=== PATIENT | male | born 1955 | race Caucasian/White ===

== ENCOUNTER 2019-01-01 13:42 | Day surgery (SDC) | payer OTHER, SELFPAY ==
[2018-12-26 15:15] VITALS: BMI 44.9
[2019-01-01] VITALS (7 sets, daily range): BP systolic 151–177; BP diastolic 82–91; PULSE 76–99; RESP 14–19; TEMP 36.4–37.2; O2SAT 96–98; BMI 44.9
[2019-01-01] MEDS: LACTATED RINGERS 1,000 ML 42 ML IV (14:38)
--- NOTE | 2019-01-01 15:46 | PM.PREOP ---
Pre-operative Note Interval Note History & Physical reviewed/Exam performed by Physician: Yes Changes to H&P: No
--- NOTE | 2019-01-01 16:36 | SUR.OPER ---
Supine on padded OR bed, head on pillow, arms secured on padded arm boards at <90 degrees abduction, legs uncrossed, safety belt at thigh, tape over blanket over lower legs.Lateral post at right thigh
[2019-01-01] MEDS: BUPIVACAINE 0.5% W/ EPI (PF) VIAL 30 ML INJ (16:53)
--- NOTE | 2019-01-01 17:03 | SUR.PHASEI ---
Report received. Pt denied pain. Rt knee drsg cdi
--- NOTE | 2019-01-01 17:12 | PM.OP.1 ---
Operative Date/Time/Diagnoses Date of procedure: 01/01/19 Time of procedure: 17:14 Pre-op diagnosis: Right knee medial and lateral meniscus tears Post-op diagnosis: other (Hypertrophic synovial plica) Procedure & Clinicians Procedure: Right knee arthroscopy with 1. Partial medial and lateral meniscectomies (CPT code 29418) and 2. Partial synovectomy/excision of plica (CPT code 64357) Same procedure as scheduled: Yes Indications: 63-year-old male with progressive knee pain and catching type symptoms. history exam suggestive of internal derangement and MRI scan confirms. Patient has failed conservative treatment thus far. Informed consent obtained to proceed with arthroscopic evaluation and treatment. Surgeon: Walter Davidson Click Yes if Unassisted: Yes Anesthesia Type: General Operative Notes Findings: Grade 1-2 chondromalacic changes of the patellar and trochlear surfaces. Mild hypertrophic synovitis in the suprapatellar pouch was significantly thickened and shredded medial patellofemoral plica. Notch demonstrates severe hypertrophic synovial thickening with intact anterior and posterior cruciate ligaments. Lateral compartment demonstrates diffuse softening the femoral and tibial articular surfaces with a small flap tear of the midbody of the lateral meniscus. Medial compartment demonstrates diffuse grade 2-3 chondromalacia changes with a small flap tear of the posterior horn medial meniscus otherwise intact posterior and have horn and mid body with a large flap tear of the anterior horn of the medial meniscus. Closure Type: primary Specimen(s): none sent Estimated Blood Loss (mL): 10 Blood products transfused: none Tourniquet time (min): 0 Procedure in detail: After administration of general anesthetic the patient placed supine on the operating table in the right lower extremities prepped and draped in the usual sterile fashion. Medial and lateral parapatellar portals created after infiltrating with Marcaine. arthroscope introduced through the lateral parapatellar portal, an arthroscopic examination was performed with the above-noted findings. Partial medial and lateral meniscectomies performed using combination basket forceps and shaver back to smooth stable rims. Hypertrophic synovial tissue and plica were then excised back to normal appearing synovial tissue with shaver. The knee was irrigated and drained and wounds were closed with Steri-Strips. The knee was then infiltrated with Marcaine, sterile dressings applied, the anesthetic terminated, and the patient taken to postanesthetic recovery in satisfactory condition. Complications: none Condition: stable Disposition: PACU Plan for aftercare: Routine postoperative care with weight-bearing as tolerated, dressing change after 48 hours as needed. Follow up in 10-14 days in orthopedic office.
--- NOTE | 2019-01-01 17:19 | P.OP_ITS ---
Operative Date/Time/Diagnoses Date of procedure: 01/01/19 Time of procedure: 17:14 Pre-op diagnosis: Right knee medial and lateral meniscus tears Post-op diagnosis: other (Hypertrophic synovial plica) Procedure & Clinicians Procedure: Right knee arthroscopy with 1. Partial medial and lateral meniscectomies (CPT code 10632) and 2. Partial synovectomy/excision of plica (CPT code 25518) Same procedure as scheduled: Yes Indications: 63-year-old male with progressive knee pain and catching type symptoms. history exam suggestive of internal derangement and MRI scan confirms. Patient has failed conservative treatment thus far. Informed consent obtained to proceed with arthroscopic evaluation and treatment. Surgeon: Walter Davidson Click Yes if Unassisted: Yes Anesthesia Type: General Operative Notes Findings: Grade 1-2 chondromalacic changes of the patellar and trochlear surfaces. Mild hypertrophic synovitis in the suprapatellar pouch was significantly thickened and shredded medial patellofemoral plica. Notch demonstrates severe hypertrophic synovial thickening with intact anterior and posterior cruciate ligaments. Lateral compartment demonstrates diffuse softening the femoral and tibial articular surfaces with a small flap tear of the midbody of the lateral meniscus. Medial compartment demonstrates diffuse grade 2-3 chondromalacia changes with a small flap tear of the posterior horn medial meniscus otherwise intact posterior and have horn and mid body with a large flap tear of the anterior horn of the medial meniscus. Closure Type: primary Specimen(s): none sent Estimated Blood Loss (mL): 10 Blood products transfused: none Tourniquet time (min): 0 Procedure in detail: After administration of general anesthetic the patient placed supine on the operating table in the right lower extremities prepped and draped in the usual sterile fashion. Medial and lateral parapatellar portals created after infiltrating with Marcaine. arthroscope introduced through the lateral parapatellar portal, an arthroscopic examination was performed with the above-noted findings. Partial medial and lateral meniscectomies performed using combination basket forceps and shaver back to smooth stable rims. Hypertrophic synovial tissue and plica were then excised back to normal appearing synovial tissue with shaver. The knee was irrigated and drained and wounds were closed with Steri-Strips. The knee was then infiltrated with Marcaine, sterile dressings applied, the anesthetic terminated, and the patient taken to postanesthetic recovery in satisfactory condition. Complications: none Condition: stable Disposition: PACU Plan for aftercare: Routine postoperative care with weight-bearing as tolerated, dressing change after 48 hours as needed. Follow up in 10-14 days in orthopedic office.
--- NOTE | 2019-01-01 17:43 | SUR.PHASEII ---
present, instructions reviewed with both - no questions/concerns. Stable on feet, Dressing CDI; Stable.
== END 2019-01-01 17:50 | disposition home or self-care (01) ==
PROVIDERS: PCP Family Medicine; Visit Provider Orthopaedic Surgery
PROC: (CPT 29870; principal; 2019-01-01 15:30)
DX: S83.241A Other tear of medial meniscus, current injury, right knee, initial encounter (principal); M25.861 Other specified joint disorders, right knee; M22.41 Chondromalacia patellae, right knee; M67.51 Plica syndrome, right knee
CPT/HCPCS: 29880; J2250; J2704; J3010

== ENCOUNTER → 2019-02-07 10:44 | Outpatient (CLI) | payer OTHER, SELFPAY ==
--- NOTE | 2019-02-07 | DI.RAD.S_ITS ---
PROCEDURE: XR LUMBAR SPINE 2-3V INDICATIONS: LOW BACK PAIN TECHNIQUE: 3 views of the lumbar spine were acquired. COMPARISON: None. FINDINGS: Bones: 5 [id number] vertebrae are present. There is minimal anterolisthesis at L2-L3 and L3-L4. Multilevel disc space narrowing is demonstrated throughout the lumbar spine including moderate narrowing at L2-L3 and mild/moderate narrowing at L3-L4. There is mild multilevel endplate sclerosis and osteophytosis. Mild facet arthropathy also demonstrated in the lower lumbar spine. No vertebral body compression fractures. No suspicious bony lesions. Soft tissues: Overlying bowel gas pattern is normal. No suspicious soft tissue calcifications. IMPRESSION: 1. Multilevel degenerative changes throughout the lumbar spine as described. 2. Minimal retrolisthesis at L2-L3 and L3-L4. Dictated by: Juanpablo Perez M.D. on 02/07/2019 at 12:39 Approved by: Juanpablo Perez M.D. on 02/07/2019 at 12:46
== END ==
PROVIDERS: PCP Family Medicine; Visit Provider Family Medicine
DX: M54.5 Low back pain (principal); M47.816 Spondylosis without myelopathy or radiculopathy, lumbar region
CPT/HCPCS: 72100

== ENCOUNTER → 2021-12-18 12:43 | Outpatient (CLI) | payer MEDICARE, SELFPAY ==
[2021-12-18 14:00] LABS: COVID-19 CEPHEID PCR (VTM/NP) Negative (Negative)
== END ==
PROVIDERS: PCP Family Medicine; Referring Provider Internal Medicine; Visit Provider Internal Medicine
DX: Z20.822 Contact with and (suspected) exposure to COVID-19 (principal)
CPT/HCPCS: C9803; U0003; U0005

== ENCOUNTER → 2021-12-18 12:48 | Outpatient (CLI) | payer MEDICARE, SELFPAY ==
--- NOTE | 2021-12-23 09:47 | PM.PFT.1 ---
Pulmonary Function Test Referral & Results Date Patient Seen: 12/18/21 Requesting provider: Scar Ochoa Results: The spirometry demonstrates an FVC of 4.30 L which is 82% of predicted. The FEV1 was measured at 3.18 L which is 81% of predicted. The FEV1/FVC ratio was 74 which is 99% of predicted. Following the administration of bronchodilator there was a 7% improvement in FEV1 and a 30% improvement in FEF 25-75% Interpretation: This study demonstrates possibly very mild obstructive lung disease based on reduction FEV1 at as well as minimal improvement post bronchodilator as above and shape a flow volume loop also does support the presence of some degree of obstructive lung disease
== END ==
PROVIDERS: PCP Family Medicine; Referring Provider Student in an Organized Health Care Education/Training Program; Visit Provider Student in an Organized Health Care Education/Training Program
DX: J44.9 Chronic obstructive pulmonary disease, unspecified (principal); Z20.822 Contact with and (suspected) exposure to COVID-19
CPT/HCPCS: 94060; C9803; U0003; U0005

== ENCOUNTER 2022-07-06 01:56 | Emergency (ER) | payer MEDICARE, SELFPAY ==
[2022-07-06 01:57] VITALS: BP 134/70; PULSE 62; RESP 18; TEMP 36.6; O2SAT 98; BMI 35.6
--- NOTE | 2022-07-06 02:05 | PC.NURSE ---
pt speaking in complete sentences, resp even and unlabored no resp distress noted
--- NOTE | 2022-07-06 02:11 | DI.RAD.S_ITS ---
PROCEDURE: XR CHEST 1V INDICATIONS: sob TECHNIQUE: One view of the chest was acquired. COMPARISON: None. FINDINGS: Surgical changes and devices: None. Lungs and pleura: Subtle infiltrates in mid lungs bilaterally. No pleural effusions or pneumothorax. Mediastinum: Mediastinal contours appear normal. Heart size is normal. Bones and chest wall: No suspicious bony lesions. Overlying soft tissues appear unremarkable. IMPRESSION: Subtle infiltrates in mid lung zones bilaterally suspicious for developing pneumonia. No significant discrepancy with the nightclub manager radiology preliminary report. Dictated by: Antwan Prasad M.D. on 07/06/2022 at 8:18 Approved by: Antwan Prasad M.D. on 07/06/2022 at 8:19
[2022-07-06 03:00] VITALS: BP 142/67; PULSE 58; RESP 18; O2SAT 94
[2022-07-06 03:30] VITALS: BP 159/75; PULSE 59; RESP 18; O2SAT 97
[2022-07-06] MEDS: AMOXICILLIN/CLAV 875/125 MG 1 TAB PO (03:42)
[2022-07-06] MEDS: ALBUTEROL/IPRATROPIUM 3 ML AMPUL INH (03:55)
[2022-07-06 04:00] VITALS: BP 123/60; PULSE 55; RESP 18; O2SAT 99
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
[2022-07-06 04:33] VITALS: BP 144/68; PULSE 56; RESP 18; O2SAT 97
== END 2022-07-06 04:35 | disposition home or self-care (01) ==
PROVIDERS: Emergency Provider Emergency Medicine; PCP Family Medicine
DX: J18.9 Pneumonia, unspecified organism (principal)
CPT/HCPCS: 71045; 99283

== ENCOUNTER 2022-07-18 20:38 | Emergency (ER) | payer MEDICARE, SELFPAY ==
[2022-07-18] VITALS (7 sets, daily range): BP systolic 145; BP diastolic 75; PULSE 62–82; RESP 17–28; TEMP 36.4; O2SAT 95–98
--- NOTE | 2022-07-18 20:54 | DI.RAD.S_ITS ---
PROCEDURE: XR CHEST 2V INDICATIONS: soa, fatigue, recently treated for pne TECHNIQUE: 2 views of the chest were acquired. COMPARISON: [facility], CR, XR CHEST 1V, 07/06/2022, 2:33. FINDINGS: Surgical changes and devices: None. Lungs and pleura: Lungs are clear. No pleural effusions or pneumothorax. Mediastinum: Mediastinal contours are normal. Heart size is normal. Bones and chest wall: No suspicious bony abnormalities. Soft tissues appear unremarkable. IMPRESSION: 1. No acute cardiopulmonary disease. Dictated by: Juanpablo Perez M.D. on 07/18/2022 at 21:22 Approved by: Juanpablo Perez M.D. on 07/18/2022 at 21:22
[2022-07-18 22:19] LABS: Add Manual Diff / Slide Review NO; Basophils Absolute Auto 0 /uL (0-100); Basophils Percent Auto 0.4 % (0-2); Eosinophils Absolute Auto 400 /uL (0-450); Eosinophils Percent Auto 3.7 % (2-4); Hematocrit 50.5 % (41-53); Hemoglobin 17.2 g/dL (13.5-17.5); Lymphocytes Absolute Auto 1700 /uL (1100-4500); Lymphocytes Percent Auto 14.9 % (25-40); Mean Corpuscular Hemoglobin 30.7 PG (26-34); Mean Corpuscular Volume 90.2 fL (80-100); Monocytes Absolute Auto 900 /uL (0-900); Monocytes Percent Auto 7.3 % (3-14); Neutrophils Absolute Auto 8500 /uL (1500-7000); Neutrophils Percent Auto 73.7 % (50-75); Platelet Count 208 X10^3/uL (150-400); Red Cell Distribution Width 14.4 % (11.6-14.8); White Blood Cell Count 11.6 X10^3/uL (4.5-11.0)
--- NOTE | 2022-07-18 22:28 | ED.RECABL ---
HPI - Recheck/Abnormal Lab/Rx General Chief Complaint: Recheck/Abnormal Lab/Rx Stated Complaint: Pneumonia Time Seen by Provider: 07/18/22 22:05 Source: patient Mode of arrival: Ambulatory Limitations: no limitations History of Present Illness HPI narrative: This is a 66-year-old male with history of hypertension, dyslipidemia, hypothyroidism and possible reactive airway disease. Patient states for the past month he will have coughing fits and feel tight and wheezy in his chest. Initially he states that he thought it was the smoke that does normally bother him every year, he was diagnosed with pneumonia on July 06 improved and then symptoms returned again. Each time patient has received oral steroids which he has found very helpful and when he stops the steroids the following day his symptoms return. He states no fevers or chills. He has some sinus congestion does not appreciate a lot of postnasal drip. He states lab coughing fits usually a couple minutes at the most he will get sweaty when he coughs a lot. He denies chest but does feel tight in his chest during these episodes. Denies any nausea or vomiting. Denies any diarrhea constipation, no urinary symptoms. No swelling in extremities. Patient does have an albuterol inhaler he is used it frequently with some help. Patient did have a PFT test and was told that he did not fully meet asthma criteria but met some of the criteria in the past month. Patient denies any active tobacco use some remote he did smoke a lot of marijuana he was younger and occasionally vapes or smokes now. Alcohol occasionally. He states he is had orthopedic surgery in his arm but denies any cardiac stents or other surgeries. States he is allergic to codeine. Related Data Home Medications Medication Instructions Recorded Confirmed aspirin 81 mg tablet,delayed 81 mg PO DAILY 12/27/18 01/01/19 release ibuprofen 800 mg tablet 800 mg PO TID 12/27/18 01/01/19 levothyroxine 175 mcg capsule 175 mcg PO DAILY 12/27/18 01/01/19 losartan 100 mg tablet 100 mg PO DAILY 12/27/18 01/01/19 simvastatin 40 mg tablet 40 mg PO QPM 12/27/18 01/01/19 tramadol 50 mg tablet 50 mg PO Q6H PRN pain 12/27/18 12/27/18 Previous Rx's Medication Instructions Recorded hydrocodone 5 mg-acetaminophen 300 1 tab PO Q4-6H PRN pain #30 tabs 01/01/19 mg tablet (Vicodin) amoxicillin 875 mg-potassium 1 tab PO Q12H #20 tabs 07/06/22 clavulanate 125 mg tablet prednisone 10 mg tablet See Rx Instructions .Route 07/06/22 .COMPLEX #30 tabs beclomethasone dipropionate 80 1 inh inhalation BID #10.6 grams 07/18/22 mcg/actuation HFA breath activated aerosol (Qvar RediHaler) prednisone 10 mg tablet See Rx Instructions .Route 07/18/22 .COMPLEX #30 tabs Allergies Allergy/AdvReac Type Severity Reaction Status Date / Time codeine AdvReac Intermediate Nausea Verified 12/27/18 08:25 Review of Systems Review of Systems ROS Unobtainable: All systems reviewed & are unremarkable except as noted in HPI and below Patient History Medical History Allergic rhinitis Chronic constipation Hemorrhoids HLD (hyperlipidemia) HTN (hypertension) Hypothyroidism Knee pain, bilateral Low back pain Osteoarthritis Segmental and somatic dysfunction of pelvic region Sleep apnea Social History household members: spouse Exam Narrative Exam Narrative: GENERAL: Alert and oriented x three, male in mild distress HEENT: Head normocephalic, atraumatic, EOMI, pupils reactive, face symmetric, nares are clear, moist mucous membranes NECK: Supple, full range of motion CARDIOVASCULAR: Regular rate and rhythm without murmurs, rubs or gallops. No JVD. No swelling bilateral lower extremities. RESPIRATORY: Breath sounds equal bilaterally, no wheezes rales or rhonchi. Patient has dry cough. Patient can speak in full sentences. No tachypnea or accessory muscle use. ABDOMEN: Soft, nontender. Normoactive bowel sounds all 4 quadrants. No guarding or rebound, rigidity, no mass : No CVA tenderness EXTREMITIES: Normal range of motion, no clubbing or edema. Neurovascularly intact NEUROLOGICAL: Cranial nerves II through XII grossly intact. Moving all extremities SKIN: Warm, dry, no petechiae, no rashes or lesions. Initial Vital Signs Initial Vital Signs: Vital Signs Temperature 97.6 F 07/18/22 20:51 Pulse Rate 62 07/18/22 20:51 Respiratory Rate 20 07/18/22 20:51 Blood Pressure 145/75 H 07/18/22 20:51 Pulse Oximetry 96 07/18/22 20:51 Oxygen Delivery Method 07/18/22 20:51 Course Orders Ordered: ED Orders 07/18/22 20:54 Chest [XR chest 2V] Stat 07/18/22 22:00 Complete Blood Count AUTO DIFF Stat 07/18/22 22:10 Covid-19 + FLU A/B + RSV - PCR Stat 07/18/22 22:46 BNP [NT-proBNP (BNP-Adult 18+)] Stat Comprehensive Metabolic Panel Stat Lipase Stat Magnesium Stat Troponin & CK Cardiac Panel Stat 07/18/22 22:56 EKG-12 Lead Stat Discontinued Medications Albuterol (Albuterol Hfa Prepack) 1 box MISC SEEINSTR ONE Stop: 07/18/22 22:43 Last Admin: 07/18/22 22:51 Dose: 1 box Documented By: AMY Methylprednisolone (Methylprednisolone 125 Mg/2 Ml Vial) 125 mg IV NOW ONE Stop: 07/18/22 22:43 Last Admin: 07/18/22 22:49 Dose: 125 mg Documented By: AMY Vital Signs Vital signs: Vital Signs - 8 hr 07/18/22 20:51 07/18/22 22:51 07/18/22 21:51 Temperature 97.6 F Pulse Rate 62 62 82 Respiratory Rate 20 20 20 Blood Pressure 145/75 H Pulse Oximetry 96 96 95 Oxygen Delivery Method Room Air Room Air 07/18/22 22:00 07/18/22 22:30 07/18/22 23:00 Temperature Pulse Rate 69 79 63 Respiratory Rate 28 H 20 17 Blood Pressure Pulse Oximetry 95 98 96 Oxygen Delivery Method 07/18/22 23:30 Temperature Pulse Rate 63 Respiratory Rate 21 Blood Pressure Pulse Oximetry 95 Oxygen Delivery Method MDM - Recheck/Abnormal Lab/Rx Lab Data Result diagrams: 07/18/22 22:00 07/18/22 22:46 Labs: Lab Results 07/18/22 07/18/22 07/18/22 Range/Units 22:00 22:10 22:46 WBC 11.6 H (4.5-11.0) X10^3/uL RBC 5.60 (4.5-5.9) X10^6/uL Hgb 17.2 (13.5-17.5) g/dL Hct 50.5 (41-53) % MCV 90.2 (80-100) fL MCH 30.7 (26-34) PG MCHC 34.0 (30-36) % RDW 14.4 (11.6-14.8) % Plt Count 208 (150-400) X10^3/uL Neut % (Auto) 73.7 (50-75) % Lymph % (Auto) 14.9 L (25-40) % [place] % (Auto) 7.3 (3-14) % Eos % (Auto) 3.7 (2-4) % Baso % (Auto) 0.4 (0-2) % Neut # (Auto) 8500 H (4520-1382) /uL Lymph # (Auto) 1700 (0420-6409) /uL [place] # (Auto) 900 (0-900) /uL Eos # (Auto) 400 (0-450) /uL Baso # (Auto) 0 (0-100) /uL Sodium 140 (137-145) mmol/L Potassium 4.5 (3.4-5.1) mmol/L Chloride 103 (98-107) mmol/L Carbon Dioxide 30 (22-32) mmol/L BUN 16 (9-20) mg/dL Creatinine 0.77 (0.66-1.25) mg/dL Estimated GFR > 60 (>60) mL/min BUN/Creatinine Ratio 20.8 (6-22) Glucose 106 (80-110) mg/dL Calcium 10.5 H (8.4-10.2) mg/dL Magnesium 2.1 (1.6-2.3) mg/dL Total Bilirubin 0.7 (0.2-1.3) mg/dL AST 31 (17-59) IU/L ALT 54 H (<50) IU/L Alkaline Phosphatase 69 (38-126) U/L Total Creatine Kinase 57 (55-170) U/L CK-MB (CK-2) TNP CK-MB (CK-2) Rel Index TNP Troponin I < 0.012 (0.01-0.034) ng/mL NT-Pro-B Natriuret Pep (<125) pg/mL Total Protein 7.5 (6.3-8.2) g/dL Albumin 4.2 (3.5-5.0) g/dL Globulin 3.3 (1.7-4.1) g/dL Albumin/Globulin Ratio 1.3 (1.0-2.8) Lipase 146 (23-300) U/L SARS-CoV-2 (PCR) Negative (Negative) Influenza A (RT-PCR) Flu a negative (NEGATIVE) Influenza B (RT-PCR) Flu b negative (NEGATIVE) RSV (PCR) Negative (Negative) 07/18/22 Range/Units 22:46 WBC (4.5-11.0) X10^3/uL RBC (4.5-5.9) X10^6/uL Hgb (13.5-17.5) g/dL Hct (41-53) % MCV (80-100) fL MCH (26-34) PG MCHC (30-36) % RDW (11.6-14.8) % Plt Count (150-400) X10^3/uL Neut % (Auto) (50-75) % Lymph % (Auto) (25-40) % [place] % (Auto) (3-14) % Eos % (Auto) (2-4) % Baso % (Auto) (0-2) % Neut # (Auto) (1160-3350) /uL Lymph # (Auto) (6675-1244) /uL [place] # (Auto) (0-900) /uL Eos # (Auto) (0-450) /uL Baso # (Auto) (0-100) /uL Sodium (137-145) mmol/L Potassium (3.4-5.1) mmol/L Chloride (98-107) mmol/L Carbon Dioxide (22-32) mmol/L BUN (9-20) mg/dL Creatinine (0.66-1.25) mg/dL Estimated GFR (>60) mL/min BUN/Creatinine Ratio (6-22) Glucose (80-110) mg/dL Calcium (8.4-10.2) mg/dL Magnesium (1.6-2.3) mg/dL Total Bilirubin (0.2-1.3) mg/dL AST (17-59) IU/L ALT (<50) IU/L Alkaline Phosphatase (38-126) U/L Total Creatine Kinase (55-170) U/L CK-MB (CK-2) CK-MB (CK-2) Rel Index Troponin I (0.01-0.034) ng/mL NT-Pro-B Natriuret Pep 29 (<125) pg/mL Total Protein (6.3-8.2) g/dL Albumin (3.5-5.0) g/dL Globulin (1.7-4.1) g/dL Albumin/Globulin Ratio (1.0-2.8) Lipase (23-300) U/L SARS-CoV-2 (PCR) (Negative) Influenza A (RT-PCR) (NEGATIVE) Influenza B (RT-PCR) (NEGATIVE) RSV (PCR) (Negative) Imaging Data Chest x-ray: Radiologist's Impression: Close Chest X-Ray (Signed) Juanpablo Perez - 07/18/22 Chest X-Ray (Signed) Antwan Prasad - 07/06/22 PFT Result 12/18/21 Lumbar Spine X-Ray (Signed) Juanpablo Perez - 02/07/19 Launch?[place] [address] XRay Report Signed Patient: Cong Escalona MR#: [id number] : 1955 Acct:[id number] Age/Sex: 66 / M Date of Service: 07/18/22 Loc: Accession Number: [id number] ?? Procedure: XR chest 2V Ordering Provider: Chloé Morrison D.O. PROCEDURE:? XR CHEST 2V ? INDICATIONS:? soa, fatigue, recently treated for pne ? TECHNIQUE:? 2 views of the chest were acquired.? ? COMPARISON:? [facility], , XR CHEST 1V, 07/06/2022, 2:33. ? FINDINGS:? ? Surgical changes and devices:? None.? ? Lungs and pleura:? Lungs are clear.? No pleural effusions or pneumothorax.? ? Mediastinum:? Mediastinal contours are normal.? Heart size is normal.? ? Bones and chest wall:? No suspicious bony abnormalities.? Soft tissues appear unremarkable.? ? IMPRESSION:? ? 1.? No acute cardiopulmonary disease. ? ? ? Dictated by: Juanpablo Perez M.D. on 07/18/2022 at 21:22 ? ? Approved by: Juanpablo Perez M.D. on 07/18/2022 at 21:22 MDM Narrative Medical decision making narrative: Discussed with patient suspect he has a component of reactive airway as he improves every time with steroids. There does seem to be some environmental component. Patient chest x-ray today is negative, lab work shows WBC of 11, EKG and resp swab show is negative. Patient had albuterol single dose of IV Solu-Medrol. Which patient states was helpful. Discussed adding a steroid inhaler longer term to see if this is helpful and he has follow-up this Tuesday with his primary care provider. We did review that there other potential causes such as cardiac, infectious but that if he is having persistent symptoms and these are not found to be the source he may need to follow up with pulmonology. Discharge Plan Departure Patient Disposition: Home Clinical Impression: Exacerbation of reactive airway disease Instructions: DI for Reactive Airway Disease-Adult Activity Restrictions/Additional Instructions: Talk with your physician about further evaluation for possible reactive airway sounds like he would done the appropriate workup with a pulmonary function test, they may wish to perform further workup so please follow-up at your appointment on Tuesday. I would recommend adding possible steroid inhaler daily to see if this improves your symptoms. You may take oral steroids for the next several days tapering down. This will allow for the inhaled steroid to start working on your lungs. You can use albuterol helpful 2-4 puffs every 4 hours as needed. Prescription sent to [facility] in [place] Please return for fevers, new or worsening chest pain, shortness of breath, lightheadedness or passing out, new swelling in her extremities if persisting. Prescriptions: New prednisone 10 mg tablet See Rx Instructions .ROUTE .COMPLEX Qty: 30 0RF Rx Instructions: Take 40 mg tablets p.o. times 3 days, then 30 mg p.o. x3 days, then 20 mg p.o. x3 days, then 10 mg p.o. x3 days Qvar RediHaler 80 mcg/actuation HFA aerosol breath activated 1 inh inhalation BID Qty: 10.6 0RF Rx Instructions: administer with spacer No Action ibuprofen 800 mg Tablet 800 mg PO TID aspirin 81 mg Tablet,Delayed Release (Dr/Ec) 81 mg PO DAILY tramadol 50 mg Tablet 50 mg PO Q6H PRN (Reason: pain) Label Comments: couple of months since last took simvastatin 40 mg Tablet 40 mg PO QPM losartan 100 mg Tablet 100 mg PO DAILY levothyroxine 175 mcg Capsule 175 mcg PO DAILY hydrocodone-acetaminophen [Vicodin] 5-300 mg tablet 1 tab PO Q4-6H PRN (Reason: pain) Qty: 30 0RF prednisone 10 mg tablet See Rx Instructions .ROUTE .COMPLEX Qty: 30 0RF Rx Instructions: Day 1,2,3: 40mg PO Daily Day 4,5,6: 30mg PO Daily Day 7,8,9: 20mg PO Daily Day 10,11,12: 10mg PO Daily #30 amoxicillin-pot clavulanate 875-125 mg tablet 1 tab PO Q12H Qty: 20 0RF Referrals: Cong Osborn DO [Primary Care Provider] - Visit Report Forms: Patient Portal/API
[2022-07-18] MEDS: methylPREDNISolone 125 MG/2 ML VIAL IV (22:49)
[2022-07-18] MEDS: ALBUTEROL HFA PREPACK 1 BOX MISC (22:51)
[2022-07-18 22:55] LABS: COVID-19 CEPHEID 4-PLEX PCR Negative (Negative); Influenza A - CEPHEID Flu A NEGATIVE (NEGATIVE); Influenza B - CEPHEID Flu B NEGATIVE (NEGATIVE); Respiratory Syncytial Virus Negative (Negative)
[2022-07-18 23:06] LABS: Alanine Aminotransferase 54 IU/L (<50); Albumin 4.2 g/dL (3.5-5.0); Albumin Globulin Ratio 1.3 (1.0-2.8); Alkaline Phosphatase 69 U/L (38-126); Aspartate Aminotransferase 31 IU/L (17-59); BUN Creatinine Ratio 20.8 (6-22); Bilirubin Total 0.7 mg/dL (0.2-1.3); Blood Urea Nitrogen 16 mg/dL (9-20); Calcium 10.5 mg/dL (8.4-10.2); Carbon Dioxide 30 mmol/L (22-32); Chloride 103 mmol/L (98-107); Creatine Kinase 57 U/L (55-170); Estimated Glomerular Filt Rate > 60 mL/min (>60); Globulin 3.3 g/dL (1.7-4.1); Glucose 106 mg/dL (80-110); HEMOLYSIS 41 (0-50); Lipase 146 U/L (23-300); Magnesium 2.1 mg/dL (1.6-2.3); Potassium 4.5 mmol/L (3.4-5.1); Sodium 140 mmol/L (137-145); Total Protein 7.5 g/dL (6.3-8.2)
[2022-07-18 23:15] LABS: NT-proBNP (BNP-Adult 18+) 29 pg/mL (<125)
[2022-07-18 23:17] LABS: Troponin I < 0.012 ng/mL (0.01-0.034)
== END 2022-07-18 23:51 | disposition home or self-care (01) ==
PROVIDERS: Emergency Provider Emergency Medicine; PCP Family Medicine
DX: J45.901 Unspecified asthma with (acute) exacerbation (principal); R07.9 Chest pain, unspecified; Z20.822 Contact with and (suspected) exposure to COVID-19
CPT/HCPCS: 0241U; 36415; 71046; 80053; 82550; 82553; 83690; 83735; 83880; 84484; 85025; 93005; 96374; 99284; J2930

== ENCOUNTER 2025-01-12 17:47 | Emergency (ER) | payer MEDICARE, SELFPAY ==
[2025-01-12] VITALS (48 sets, daily range): BP systolic 113–166; BP diastolic 57–85; PULSE 46–67; RESP 19–37; TEMP 36.6; O2SAT 97–100; BMI 32.5
--- NOTE | 2025-01-12 17:56 | EKG_ITS ---
[address] [address] Test Date: 2025-01-12 Pat Name: Cong Escalona Department: Room: Gender: Male Rewinder: CJ : 1955 Requested By: Order Number: [id number] Reading MD: Cipriano Wheleer MD Measurements Intervals [place] Rate: 61 P: 43 [place]: 168 QRS: 38 QRSD: 110 T: 29 QT: 388 QTc: 390 Interpretive Statements Normal sinus rhythm Electronically Signed On 01-13-2025 7:57:37 PDT by Cipriano Wheeler MD
--- NOTE | 2025-01-12 18:08 | DI.RAD.S_ITS ---
PROCEDURE: XR CHEST 1V INDICATIONS: chest pain TECHNIQUE: One view of the chest was acquired. COMPARISON: [facility], CR, XR CHEST 2V, 07/18/2022, 20:55. FINDINGS: Surgical changes and devices: None. Lungs and pleura: Lungs are clear. No pleural effusions or pneumothorax. Mediastinum: Mediastinal contours appear normal. Heart size is normal. Bones and chest wall: No suspicious bony lesions. Overlying soft tissues appear unremarkable. IMPRESSION: No acute cardiopulmonary abnormality is seen. Approved by: Reynaldo Robbins M.D. on 01/12/2025 at 18:27
[2025-01-12] MEDS: ASPIRIN 81 MG CHEW TAB 324 MG PO (18:16)
[2025-01-12 18:21] LABS: Add Manual Diff / Slide Review NO; Basophils Absolute Auto 0 /uL (0-100); Basophils Percent Auto 0.5 % (0-2); Eosinophils Absolute Auto 100 /uL (0-450); Eosinophils Percent Auto 1.5 % (2-4); Hematocrit 47.5 % (41-53); Lymphocytes Absolute Auto 1100 /uL (1100-4500); Lymphocytes Percent Auto 14.3 % (25-40); Mean Corpuscular HGB Conc 33.7 % (30-36); Mean Corpuscular Hemoglobin 31.6 PG (26-34); Mean Corpuscular Volume 93.8 fL (80-100); Monocytes Absolute Auto 700 /uL (0-900); Monocytes Percent Auto 9.7 % (3-14); Neutrophils Absolute Auto 5700 /uL (1500-7000); Platelet Count 199 X10^3/uL (150-400); Red Blood Cell Count 5.07 X10^6/uL (4.5-5.9); Red Cell Distribution Width 14.3 % (11.6-14.8); White Blood Cell Count 7.7 X10^3/uL (4.5-11.0)
[2025-01-12 18:24] LABS: PTT Partial Thromboplastin Tim 39 SECONDS (25.1-36.5)
[2025-01-12 18:27] LABS: Alanine Aminotransferase 37 IU/L (<50); Albumin 4.5 g/dL (3.5-5.0); Albumin Globulin Ratio 1.6 (1.0-2.8); Alkaline Phosphatase 61 U/L (38-126); Aspartate Aminotransferase 36 IU/L (17-59); BUN Creatinine Ratio 19.2 (6-22); Bilirubin Total 0.9 mg/dL (0.2-1.3); Blood Urea Nitrogen 14 mg/dL (9-20); Calcium 10.4 mg/dL (8.4-10.2); Carbon Dioxide 29 mmol/L (22-32); Chloride 105 mmol/L (98-107); Creatine Kinase 109 U/L (55-170); Estimated Glomerular Filt Rate > 60 mL/min (>60); Globulin 2.9 g/dL (1.7-4.1); Glucose 133 mg/dL (70-99); HEMOLYSIS 21 (0-50); Lipase 94 U/L (23-300); Magnesium 2.2 mg/dL (1.6-2.3); Sodium 139 mmol/L (137-145); Total Protein 7.4 g/dL (6.3-8.2)
[2025-01-12 18:39] LABS: NT-proBNP (BNP-Adult 18+) 69 pg/mL (<125); Troponin I < 0.012 ng/mL (0.01-0.034)
--- NOTE | 2025-01-12 19:13 | ED.ARRPALP ---
HPI - Arrhythmia/Palpitations General Chief Complaint: Arrhythmia/Palpitations Stated Complaint: Chest pain, AFib Time Seen by Provider: 01/12/25 19:13 Source: patient Mode of arrival: EMS History of Present Illness HPI narrative: 69-year-old male without history of known coronary artery disease, dysrhythmia, palpitations, about 3:00 p.m. today had 1 hour duration of left lower chest tightness with sensation of heart racing and palpitations, called EMS, was given IV diltiazem 20 mg bolus, symptoms seemed to be improved thereafter per patient. No shocks, no CPR. Does not recall adenosine. Denies further chest discomfort. Denies further palpitation. Patient has history of allergies, has recently started Sudafed yesterday, but has taken Sudafed for many seasons in the past without similar symptoms. No other new medications recalled. No history of known coronary artery disease. Denies cardiac risk factors of smoking and diabetes, does have high blood pressure, does have statin medications. Related Data Home Medications Medication Instructions Recorded Confirmed aspirin 81 mg tablet,delayed 81 mg PO DAILY 12/27/18 01/01/19 release ibuprofen 800 mg tablet 800 mg PO TID 12/27/18 01/01/19 levothyroxine 175 mcg capsule 175 mcg PO DAILY 12/27/18 01/01/19 losartan 100 mg tablet 100 mg PO DAILY 12/27/18 01/01/19 simvastatin 40 mg tablet 40 mg PO QPM 12/27/18 01/01/19 tramadol 50 mg tablet 50 mg PO Q6H PRN pain 12/27/18 12/27/18 Previous Rx's Medication Instructions Recorded hydrocodone 5 mg-acetaminophen 300 1 tab PO Q4-6H PRN pain #30 tabs 01/01/19 mg tablet (Vicodin) amoxicillin 875 mg-potassium 1 tab PO Q12H #20 tabs 07/06/22 clavulanate 125 mg tablet prednisone 10 mg tablet See Rx Instructions .Route 07/06/22 .COMPLEX #30 tabs beclomethasone dipropionate 80 1 inh inhalation BID #10.6 grams 07/18/22 mcg/actuation HFA breath activated aerosol (Qvar RediHaler) prednisone 10 mg tablet See Rx Instructions .Route 07/18/22 .COMPLEX #30 tabs apixaban 5 mg tablet (Eliquis) 5 mg PO BID #60 tabs 04/26/25 metoprolol succinate 25 mg capsule 25 mg PO DAILY #30 ea 01/12/25 sprinkle, ext. release 24 hr Allergies Allergy/AdvReac Type Severity Reaction Status Date / Time codeine AdvReac Intermediate Nausea Verified 12/27/18 08:25 Patient History Medical History Allergic rhinitis Chronic constipation Hemorrhoids HLD (hyperlipidemia) HTN (hypertension) Hypothyroidism Knee pain, bilateral Low back pain Osteoarthritis Segmental and somatic dysfunction of pelvic region Sleep apnea Social History household members: spouse Smoking Status: Never smoker Smoking Status: Never smoker Alcohol type: wine Exam Narrative Exam Narrative: GENERAL: Well-developed patient, in mild distress. HEAD: Atraumatic. Normocephalic. EYES: Pupils equal round and reactive. Extraocular motions intact. No scleral icterus. No injection or drainage. ENT: Nose without bleeding, purulent drainage. Throat without erythema, tonsillar hypertrophy or exudate. Airway patent. NECK: Trachea midline. Non tender CARDIOVASCULAR: Regular rate and rhythm without murmurs, gallops, or rubs. RESPIRATORY: Clear to auscultation. Breath sounds equal bilaterally. No wheezes, rales, or rhonchi. GASTROINTESTINAL: Abdomen soft, non-tender, nondistended. EXTREMITIES: No edema or joint tenderness. BACK: Nontender without deformity or crepitance. No flank tenderness. NEURO: AOx3. Motor functions grossly nonfocal SKIN: No rash or erythema of visible areas Initial Vital Signs Initial Vital Signs: Vital Signs Pulse Rate 67 01/12/25 17:51 Pulse Oximetry 98 01/12/25 17:51 Oxygen Delivery Method Room Air 01/12/25 17:51 Scores CHADS-VASc Congestive heart failure: no Hypertension: yes Age 75 years or older: no Diabetes mellitus: no Stroke, TIA, or TE: no Vascular disease: no Age 65 to 74 years: yes Sex category (female): Male CHADS-VASc Score: 2 Course Orders Ordered: Discontinued Medications Apixaban (Apixaban 5 Mg Tablet) 5 mg PO NOW ONE Stop: 01/12/25 21:58 Last Admin: 01/12/25 22:12 Dose: 5 mg Documented By: Aspirin (Aspirin 81 Mg Chew Tab) 324 mg PO NOW ONE Stop: 01/12/25 18:09 Last Admin: 01/12/25 18:16 Dose: 324 mg Documented By: RB Vital Signs Vital signs: Vital Signs - 8 hr 01/12/25 21:35 01/12/25 21:35 01/12/25 21:40 Pulse Rate 49 L 48 L Respiratory Rate 23 22 Blood Pressure 118/62 Pulse Oximetry 99 99 01/12/25 21:40 Pulse Rate Respiratory Rate Blood Pressure 119/61 Pulse Oximetry MDM - Arrhythmia/Palpitations Lab Data Attestation: I reviewed the patient's lab results. Lab results narrative: White blood cell count 7700, hemoglobin 16, platelets adequate. Glucose 133. Electrolytes unremarkable. Renal function normal. Magnesium normal. Troponin negative. Liver functions normal. BNP not elevated. 01/12/25 18:00 01/12/25 18:00 Labs: Lab Results 01/12/25 01/12/25 Range/Units 18:00 20:23 WBC 7.7 (4.5-11.0) X10^3/uL RBC 5.07 (4.5-5.9) X10^6/uL Hgb 16.0 (13.5-17.5) g/dL Hct 47.5 (41-53) % MCV 93.8 (80-100) fL MCH 31.6 (26-34) PG MCHC 33.7 (30-36) % RDW 14.3 (11.6-14.8) % Plt Count 199 (150-400) X10^3/uL Neut % (Auto) 74.0 (50-75) % Lymph % (Auto) 14.3 L (25-40) % [place] % (Auto) 9.7 (3-14) % Eos % (Auto) 1.5 L (2-4) % Baso % (Auto) 0.5 (0-2) % Neut # (Auto) 5700 (1893-3243) /uL Lymph # (Auto) 1100 (7292-8099) /uL [place] # (Auto) 700 (0-900) /uL Eos # (Auto) 100 (0-450) /uL Baso # (Auto) 0 (0-100) /uL PT 11.0 (9.4-12.5) SECONDS INR 1.0 (0.9-1.3) APTT 39 H (25.1-36.5) SECONDS Sodium 139 (137-145) mmol/L Potassium 4.0 (3.4-5.1) mmol/L Chloride 105 (98-107) mmol/L Carbon Dioxide 29 (22-32) mmol/L BUN 14 (9-20) mg/dL Creatinine 0.73 (0.66-1.25) mg/dL Estimated GFR > 60 (>60) mL/min BUN/Creatinine Ratio 19.2 (6-22) Glucose 133 H (70-99) mg/dL Calcium 10.4 H (8.4-10.2) mg/dL Magnesium 2.2 (1.6-2.3) mg/dL Total Bilirubin 0.9 (0.2-1.3) mg/dL AST 36 (17-59) IU/L ALT 37 (<50) IU/L Alkaline Phosphatase 61 (38-126) U/L Total Creatine Kinase 109 (55-170) U/L Troponin I < 0.012 0.015 (0.01-0.034) ng/mL NT-Pro-B Natriuret Pep 69 (<125) pg/mL Total Protein 7.4 (6.3-8.2) g/dL Albumin 4.5 (3.5-5.0) g/dL Globulin 2.9 (1.7-4.1) g/dL Albumin/Globulin Ratio 1.6 (1.0-2.8) Lipase 94 (23-300) U/L ECG Data Attestation: I personally reviewed and interpreted this ECG as follows: Interpretation: Normal sinus rhythm with rate 61, no obvious ST segment elevation or depression changes. TX 168, QRS 110, QTC 390. MDM Narrative Medical decision making narrative: 69-year-old male with no known CAD, risk factors of hypertension and hyperlipidemia, recent Sudafed exposure for seasonal allergies, had palpitation than chest discomfort tightness, EMS gave IV diltiazem 20 mg for fast rhythm that they felt might be AFib RVR. Screening EKG here did not show atrial fibrillation or atrial flutter. Sinus rhythm noted. Labs pending. Symptoms resolved. Copy of EMS rhythm EKG obtained, did looks suspicious for AFib RVR on their study. On study are on arrival here however appears to be in sinus rhythm. Initial troponin negative, we will repeat interval troponin. Interval repeat troponin negative. CHADS-Vasc2 score = 2 We will contact parking ramp attendant on-call Dr. Nova, who recommend starting metoprolol 25 mg long-acting tomorrow, also recommend starting Eliquis 5 mg twice daily, we will give 1st dose now, prescription sent to his pharmacy. He can see patient in close follow up Tuesday early this next week. Above advice relayed to patient, he and spouse expressed understanding, discharged home with family. Return precautions discussed. Discharge Plan Departure Patient Disposition: Home Clinical Impression: Heart palpitations, Atrial fibrillation with RVR Instructions: DI for Atrial Fibrillation Activity Restrictions/Additional Instructions: Palpitations and fast heart rate sensation and chest discomfort, with EMS rhythm strip suspicious for atrial fibrillation and rapid ventricular response rate, given IV diltiazem during transport. Normal sinus rhythm on EKG here. Blood testing not suspicious for heart attack here. Case discussed with parking ramp attendant Dr. Nova who would like he to start blood thinner medication Eliquis 5 mg twice daily, 1st oral dose now. He would also like he to start long-acting metoprolol at 25 mg daily, start tomorrow as your heart rate is already reduced from the IV diltiazem. He would like to see you in close follow up. Call his office on Tuesday. Return earlier to this/nearest emergency department for any change worsening symptoms or any concerns prior. Prescriptions: New Eliquis 5 mg tablet 5 mg PO BID Qty: 60 0RF metoprolol succinate 25 mg capsule,sprinkle,ER 24hr 25 mg PO DAILY Qty: 30 0RF No Action ibuprofen 800 mg Tablet 800 mg PO TID aspirin 81 mg Tablet,Delayed Release (Dr/Ec) 81 mg PO DAILY tramadol 50 mg Tablet 50 mg PO Q6H PRN (Reason: pain) Patient Comments: couple of months since last took simvastatin 40 mg Tablet 40 mg PO QPM losartan 100 mg Tablet 100 mg PO DAILY levothyroxine 175 mcg Capsule 175 mcg PO DAILY hydrocodone-acetaminophen [Vicodin] 5-300 mg tablet 1 tab PO Q4-6H PRN (Reason: pain) Qty: 30 0RF prednisone 10 mg tablet See Rx Instructions .ROUTE .COMPLEX Qty: 30 0RF Rx Instructions: Day 1,2,3: 40mg PO Daily Day 4,5,6: 30mg PO Daily Day 7,8,9: 20mg PO Daily Day 10,11,12: 10mg PO Daily #30 amoxicillin-pot clavulanate 875-125 mg tablet 1 tab PO Q12H Qty: 20 0RF prednisone 10 mg tablet See Rx Instructions .ROUTE .COMPLEX Qty: 30 0RF Rx Instructions: Take 40 mg tablets p.o. times 3 days, then 30 mg p.o. x3 days, then 20 mg p.o. x3 days, then 10 mg p.o. x3 days Qvar RediHaler 80 mcg/actuation HFA aerosol breath activated 1 inh inhalation BID Qty: 10.6 0RF Rx Instructions: administer with spacer Referrals: Rc Nova MD [Physician] - Cong Osborn DO [Primary Care Provider] - Stand Alone Forms: Patient Portal/API/Survey
[2025-01-12 20:58] LABS: Troponin I 0.015 ng/mL (0.01-0.034)
[2025-01-12] MEDS: APIXABAN 5 MG TABLET PO (22:12)
== END 2025-01-12 22:19 | disposition home or self-care (01) ==
PROVIDERS: Emergency Provider Emergency Medicine; PCP Family Medicine
DX: I48.20 Chronic atrial fibrillation, unspecified (principal); R00.2 Palpitations
CPT/HCPCS: 71045; 80053; 82550; 83690; 83735; 83880; 84484; 85025; 85610; 85730; 93005; 93010; 99283; 99284